=== PATIENT | female | born 1930 | race Two or more races ===

== ENCOUNTER 2017-06-27 11:56 | Outpatient (CLI) | payer OTHER ==
[~2017-06-27 11:56] MED LIST: ARICEPT5 MG; ASPIR 8181 MG; Aricept 10 MG TABLET PO; Asa-EC 81MG TAB PO; Atrovent 0.02% (0.5 MG/2.5 ML AMPUL) IH; DULERA 200 MCG/13 GM; DULERA 200 MCG/13 GM IH; LASIX20 MG; LASIX20 MG PO; NAMENDA10 MG; NORVASC5 MG; Namenda 10MG TABLET PO; Norvasc 2.5 MG TAB PO; PLAVIX75 MG; Pulmicort 0.5 MG/2 ML AMPUL IH; Surfak PO; Xopenex 0.63 MG/3 ML SOLUTION IH; ZOCOR40 MG; ZoCOR 20MG TABLET PO
== END 2017-06-27 12:01 | disposition home or self-care (01) ==
LOC: T RESPIRAT 11:56
DX: J43.2 Centrilobular emphysema (principal)

== ENCOUNTER 2017-07-29 17:47 | Inpatient (IN) | payer OTHER ==
[~2017-07-29] VITALS: Ht 165.1 cm; Wt 51.7 kg
[2017-08-12] MEDS ORDERED: LOPRESSOR25 MG PO (08:38)
[2017-08-12] MEDS ORDERED: MEDROLPACK PO (08:39)
[2017-08-12] MEDS ORDERED: CLONAZEPAM0.25 MG PO (10:12)
== END 2017-08-12 14:25 | disposition other institution (70) | DRG 177 ==
LOC: ER 17:47 → MEDI 22:15 → MEDJ 07-30 16:05
PROC: 3E0F7GC Introduction of Other Therapeutic Substance into Respiratory Tract, Via Natural or Artificial Opening (ICD-10-PCS; principal; 2017-07-29)
PROC: 4A033R1 Measurement of Arterial Saturation, Peripheral, Percutaneous Approach (ICD-10-PCS; 2017-07-29)
PROC: BB24ZZZ Computerized Tomography (CT Scan) of Bilateral Lungs (ICD-10-PCS; 2017-07-30)
PROC: B246ZZZ Ultrasonography of Right and Left Heart (ICD-10-PCS; 2017-07-31)
PROC: 8E0ZXY6 Isolation (ICD-10-PCS; 2017-07-31)
PROC: 5A09457 Assistance with Respiratory Ventilation, 24-96 Consecutive Hours, Continuous Positive Airway Pressure (ICD-10-PCS; 2017-08-01)
PROC: 02HV33Z Insertion of Infusion Device into Superior Vena Cava, Percutaneous Approach (ICD-10-PCS; 2017-08-04)
PROC: 4A12X4Z Monitoring of Cardiac Electrical Activity, External Approach (ICD-10-PCS; 2017-08-07)
DX: J15.8 Pneumonia due to other specified bacteria (principal); A41.9 Sepsis, unspecified organism; J96.22 Acute and chronic respiratory failure with hypercapnia; J47.1 Bronchiectasis with (acute) exacerbation; R04.2 Hemoptysis; B37.0 Candidal stomatitis; Z66 Do not resuscitate; I48.0 Paroxysmal atrial fibrillation; R13.19 Other dysphagia; Z85.118 Personal history of other malignant neoplasm of bronchus and lung; L89.150 Pressure ulcer of sacral region, unstageable